=== PATIENT | male | born 1935 | race Caucasian/White ===

== ENCOUNTER → 2019-10-13 13:00 | Outpatient (BNVA) | payer OTHER, MEDICARE, SELFPAY | PROVIDERS: Family Provider Family Medicine; PCP Family Medicine; Visit Provider Nurse Practitioner Family | DX: R05 Cough (principal); R53.83 Other fatigue | CPT/HCPCS: 87635 ==

== ENCOUNTER → 2020-03-11 09:05 | Outpatient (BNVA) | payer OTHER, SELFPAY | PROVIDERS: Family Provider Family Medicine; PCP Family Medicine; Visit Provider Nurse Practitioner Family | DX: R05 Cough (principal); R53.83 Other fatigue | CPT/HCPCS: 87400; 87635 ==

== ENCOUNTER → 2021-04-19 08:48 | Outpatient (BNVA) | payer OTHER, SELFPAY | PROVIDERS: Family Provider Family Medicine; PCP Family Medicine; Visit Provider Nurse Practitioner Family | DX: R03.0 Elevated blood-pressure reading, without diagnosis of hypertension (principal); Z12.5 Encounter for screening for malignant neoplasm of prostate | CPT/HCPCS: 80053; 80061; 84443; 85025; G0103 ==

== ENCOUNTER → 2021-06-28 09:57 | Outpatient (BNVA) | payer OTHER, SELFPAY | PROVIDERS: Family Provider Family Medicine; PCP Family Medicine; Visit Provider Internal Medicine Cardiovascular Disease | DX: R94.39 Abnormal result of other cardiovascular function study (principal); I44.2 Atrioventricular block, complete; I10 Essential (primary) hypertension | CPT/HCPCS: 99214 ==

== ENCOUNTER → 2023-10-15 13:00 | Outpatient (BNVA) | payer OTHER, SELFPAY | PROVIDERS: Family Provider Family Medicine; PCP Family Medicine; Visit Provider Nurse Practitioner Family | DX: I10 Essential (primary) hypertension (principal); E53.8 Deficiency of other specified B group vitamins; Z76.89 Persons encountering health services in other specified circumstances; E78.2 Mixed hyperlipidemia | CPT/HCPCS: 80053; 80061; 82607; 84443 ==

== ENCOUNTER → 2023-11-25 11:30 | Outpatient (BNVA) | payer OTHER, SELFPAY | PROVIDERS: Family Provider Family Medicine; PCP Nurse Practitioner Family; Visit Provider Nurse Practitioner Family | DX: I10 Essential (primary) hypertension (principal); E53.8 Deficiency of other specified B group vitamins; E78.2 Mixed hyperlipidemia; E87.5 Hyperkalemia | CPT/HCPCS: 84132 ==

== ENCOUNTER → 2024-04-15 09:00 | Outpatient (BNVA) | payer OTHER, SELFPAY | PROVIDERS: Family Provider Family Medicine; PCP Nurse Practitioner Family; Visit Provider Nurse Practitioner Family | DX: E78.2 Mixed hyperlipidemia (principal); E53.8 Deficiency of other specified B group vitamins; I10 Essential (primary) hypertension | CPT/HCPCS: 80053; 80061; 82607 ==

== ENCOUNTER → 2024-10-19 08:51 | Outpatient (BNVA) | payer OTHER, SELFPAY | PROVIDERS: PCP Nurse Practitioner Family; Visit Provider Nurse Practitioner Family | DX: E78.2 Mixed hyperlipidemia (principal); E53.8 Deficiency of other specified B group vitamins | CPT/HCPCS: 80053; 80061; 82607 ==

== ENCOUNTER → 2025-04-09 08:30 | Outpatient (BNVA) | payer OTHER, SELFPAY | PROVIDERS: PCP Nurse Practitioner Family; Visit Provider Nurse Practitioner Family | DX: I10 Essential (primary) hypertension (principal) | CPT/HCPCS: 80053; 80061 ==